=== PATIENT | female | born 1995 | race Caucasian/White ===

== ENCOUNTER 2024-07-19 23:06 | Observation (INO) ==
[2024-07-19] MEDS: LORazepam 1 MG/1 ML SYR ED Inj Use ONE ×2 (23:25→23:35)
[2024-07-19] MEDS: HALOPERIDOL LACTATE 5 MG/ML 1 ML VIAL ONE (23:25)
[2024-07-19] MEDS ORDERED: HALOPERIDOL DECANOATE INJ 50 MG/ML VIAL IM ONE (23:49)
[2024-07-20 00:07] LABS: Hemoglobin 13.1 g/dl (12.0-16.0); Mean Corpuscular Hemoglobin 25.1 pg (25.0-34.0); Mean Corpuscular Volume 78.5 fL (80.0-100.0); Mean Platelet Volume 10.4 fL (9.4-12.4); Platelet Count 447 K/uL (130-400); RDW Coefficient of Variation 13.5 % (11.5-14.5); RDW Standard Deviation 37.6 fL (36.4-46.3); Red Blood Count 5.22 M/uL (4.20-5.40); White Blood Count 13.53 K/ul (4.8-10.8)
[2024-07-20 00:21] LABS: Albumin Globulin Ratio 1.1 (0.9-2); Albumin Level 4.6 gm/dl (3.4-5.0); BUN Creatinine Ratio 10.7 (10-20); Bilirubin,Total 0.3 mg/dl (0.2-1.0); Calcium 9.3 mg/dl (8.6-10.3); Creatinine Clr Calc Pharmacy 140.4 ml/min; Globulin 4.2 gm/dl (2.5-4.0); Magnesium 1.7 mg/dl (1.7-2.4); Potassium 3.8 mmol/L (3.5-5.1); Total Protein 8.8 gm/dl (6.0-8.3)
[2024-07-20 00:34] LABS: ALC (manual) 6.09 K/uL (1.2-3.4); ANC (manual) 6.63 K/uL (1.4-6.5); Basophils # (manual) 0.27 K/uL (0-0.2); Basophils % (manual) 2 %; Eosinophils # (manual) 0.27 K/uL (0-0.50); Eosinophils % (manual) 2 %; Large Granular Lymph # (manua 2.16 K/uL; Large Granular Lymph % (manual) 16 %; Lymphocytes # (manual) 3.92 K/uL (1.2-3.4); Lymphocytes % (manual) 29 %; Monocytes # (manual) 0.27 K/uL (0.11-0.59); Monocytes % (manual) 2 %; Neutrophils # (manual) 6.63 K/uL (1.40-6.50); Neutrophils % (manual) 49 %; Ovalocytes 1+; Polychromasia 1+
[2024-07-20 00:39] LABS: Appearance Urine Clear (Clear); Bacteria Urine Automated None Seen (None Seen); Bilirubin Urine Negative (Negative); Blood Urine Negative (Negative); Color Urine Yellow; Epithelial Cell Urine Auto 0-2 /hpf (0-2); Glucose Urine UA Negative (Negative); Ketones Urine Negative (Negative); Leukocyte Esterase Urine Negative (Negative); Nitrite Urine Negative (Negative); Protein Urine 1+ (Negative); RBC Urine Automated 0-2 /hpf (0-2); Urobilinogen Urine Negative (Negative); WBC Urine Automated 0-5 /hpf (0-5)
--- NOTE | 2024-07-20 00:46 | Emergency Department Note ---
Impression & Plan Intentional overdose of insulin, Alcohol intoxication Admit to the [facility] ED Provider Note NAME: BRANDY HERNANDEZ AGE: 29 SEX: Female INFORMANT: Patient ED PROVIDER(S): Marcella Cedeño DO CHIEF COMPLAINT: insulin overdose; alcohol intoxication PLAN: Disposition: Admit to the [facility] on a 1-to-1 MEDICAL DECISION MAKING: This is a 29-year-old female patient with a history of diabetes and alcohol abuse who presents to the emergency department after an intentional insulin overdose. Patient was stopped by state police as a DUI when she intentionally overdosed herself on insulin with her insulin pump. She presented to the emergency department in an acute combative state. She was under the influence of alcohol with a normal blood sugar at the time of presentation. She required both chemical and physical restraint and quickly became hypoglycemic. Patient received IV dextrose bolus and was placed on IV dextrose drip. She was monitored closely and admitted medically. She made multiple suicidal threats while here in the emergency department and will require psychiatric evaluation when she is medically cleared. Laboratory studies revealed a negative urine drug screen, negative and negative urinalysis. White blood cell count was 13.5. H&H were stable. Sodium was elevated at 147. Alcohol level was 281. Aspirin and Tylenol levels were negative. Anion gap was elevated at 15. Patient's blood sugar upon presentation was 124 but dropped as low as 33. Patient required IM Haldol and IM Ativan for chemical sedation. She was observed on the cardiac cath rn in the prone position. I was at the bedside during both physical and chemical restraint. Vital signs remained stable. Blood sugars were checked every 30 minutes. She was bolused with IV D10 and then placed on D10/W drip at 250 mL/h Blood sugars were [phone] Care/management discussed with: ED psychiatric clinical case manager; [place] [employer] police; [facility]ist Triage Nursing notes: reviewed and agree with them. Vital Signs: reviewed and remarkable for tachycardia and hypertension Additional History obtained from: Police and the patient's Chronic Medical/Social Conditions affecting care: Insulin-dependent diabetes and alcohol dependence Differential Diagnosis: Mood disorder, thought disorder, alcohol intoxication, drug abuse, suicide attempt Diagnostics, independently interpreted by me: ECG: sinus tachycardia at a rate of [address] segment elevation or signs of ischemia. There is no ectopy. Cardiac Monitoring: Sinus tachycardia at 119 HPI: 29 year old Female arrives for evaluation of suicide attempt. Patient was pulled over by state police as a DUI. During their processing, the patient admitted that she had overdosed herself with her insulin pump. She was brought to the emergency department for evaluation and became combative with police. PAST MEDICAL HISTORY: See Below, PAST SURGICAL HISTORY: See Below, SOCIAL HISTORY: See Below, HOME MEDICATIONS: See list ALLERGIES: See list VITALS: See Below PHYSICAL EXAMINATION: HEENT: Head - normocephalic and atraumatic. Pupils are equal, round, and reactive to light. Extraocular eye muscles are intact, and sclera are anicteric. Nose - moist nasal mucosa without discharge. Mouth - moist buccal mucosa. Oropharynx is nonerythematous and there is no tonsillar exudate or edema noted. Neck: Supple; no cervical lymphadenopathy Heart: Tachycardic rate and rhythm. There is a normal S1 and S2 with no murmurs, clicks, or gallops appreciated. Lungs: Clear to auscultation bilaterally with no wheezes, rales, or rhonchi. Abdomen: Soft, completely nontender, nondistended, with good bowel sounds. There are no palpable pulsatile masses or hepatosplenomegaly. There is no guarding, rigidity, or rebound noted. Extremities: No evidence of cyanosis, clubbing, or edema. There are easily palpable peripheral pulses. Skin: warm and diaphoretic with good turgor and no rashes. Multiple tattoos Psych: Patient was extremely agitated. She was yelling expletives at nursing staff and myself. She was threatening to punch security staff and nursing staff and me. Emergency department treatment: manager monitoring, IM Haldol, IM Ativan, IM Ativan, IV D10, IV D10W drip Emergency department course: The patient was evaluated in room A-10. A complete history and physical was performed. The patient was physically restrained with 4 point locked restraints. She was chemically restrained with 10 mg of IM Haldol and 2 mg of IM Ativan. She was placed in the prone position on the cardiac cath rn and monitor closely. Laboratory studies were drawn as above. Blood sugars were obtained every 30 minutes. The patient's second blood sugar dropped from 124-33. She was bolused with IV D10. Her blood sugar rebounded nicely to 149. A subsequent blood sugar dropped to 60. She was placed on IV D10 drip at 250 mL/h. I discussed case with the [facility] Hospitalist and they will evaluate for further inpatient medical care. The patient will remain on a one-to-one status because of her suicide attempt I have personally spent greater than 70 minutes of critical care time in the direct management of this patient. This includes bedside care, interpretation of diagnostic studies, and testing, discussion with consultants, patient, and family members, and other required patient management activities. This 70 minutes is in excess of all separately billable procedures. Past Med/Surg History Problem List (Updated 07/20/24 @ 19:13 by Marcella Cedeño DO) Alcohol intoxication (Acute) Alcohol use disorder, severe, dependence Diabetes Intentional overdose of insulin (Acute) Social History Smoking Status: Unknown if ever smoked Hx Alcohol Use: Yes (pt refuses to answer) Preferred Language: [place] [employer] Required: No Beliefs That Will Affect Care: None Current Living Situation: Spouse Current Living Situation Comment: lives with Feels Safe at Home: Declines to Answer Assistive Devices: None Allergies Allergies Allergy/AdvReac Type Severity Reaction Status Date / Time albuterol Allergy Agitated Verified 07/19/24 23:41 Home Meds Home Medications Medication Instructions Recorded Confirmed escitalopram oxalate 10 mg tablet 10 mg PO DAILY 07/20/24 07/20/24 ferrous sulfate 325 mg (65 mg 325 mg PO DAILY 07/20/24 07/20/24 iron) tablet (FeroSul) hydroxyzine pamoate 25 mg capsule 25 mg PO QID PRN Unknown 07/20/24 07/20/24 insulin lispro 100 unit/mL See Rx Instructions .Route .COMPLEX 07/20/24 07/20/24 subcutaneous pen levothyroxine 88 mcg tablet 88 mcg PO DAILY 07/20/24 07/20/24 lisinopril 10 mg tablet 10 mg PO DAILY 07/20/24 07/20/24 propranolol 20 mg tablet 20 mg PO BID PRN BLOOD PRESSURE 07/20/24 07/20/24 AND GT 150/90 AND /OR ANXIETY trazodone 50 mg tablet 50 - 100 mg PO HS PRN Unknown 07/20/24 07/20/24 Results & Data (ED) Vital Signs Vital Signs - 24 hr 07/19/24 23:20 07/19/24 23:25 07/19/24 23:30 Temperature 37.0 C Temperature Source Rectal Pulse Rate 125 H 125 H 160 H Pulse Rate [Apical] Pulse Rate from SpO2 Sensor Pulse Rhythm Regular Regular Pulse Rhythm [Apical] Pulse Strength Normal Pulse Strength [Apical] Respiratory Rate 22 18 23 Respiratory Effort / Characteristics Non-Labored Spontaneous Respiratory Depth Normal Respiratory Pattern Regular Blood Pressure 121/59 L Blood Pressure [Left Arm] Blood Pressure Mean 79 Blood Pressure Mean [Left Arm] Blood Pressure Position Lying Blood Pressure Position [Left Arm] Pulse Oximetry 92 92 92 Oxygen Delivery Method Room Air Room Air Room Air Oxygen Flow Rate Sepsis Recent Fever Within 48 Hours No Sepsis New/Unexplained Change in Mental Status N/A Sepsis Action Taken by Nursing No Action Required 07/19/24 23:42 07/19/24 23:48 07/19/24 23:48 Temperature Temperature Source Pulse Rate 132 H Pulse Rate [Apical] Pulse Rate from SpO2 Sensor Pulse Rhythm Pulse Rhythm [Apical] Pulse Strength Pulse Strength [Apical] Respiratory Rate 22 Respiratory Effort / Characteristics Respiratory Depth Respiratory Pattern Blood Pressure 121/59 L 121/59 L Blood Pressure [Left Arm] Blood Pressure Mean 108 108 Blood Pressure Mean [Left Arm] Blood Pressure Position Blood Pressure Position [Left Arm] Pulse Oximetry 91 Oxygen Delivery Method Room Air Oxygen Flow Rate Sepsis Recent Fever Within 48 Hours Sepsis New/Unexplained Change in Mental Status Sepsis Action Taken by Nursing 07/19/24 23:48 07/19/24 23:50 07/19/24 23:51 Temperature Temperature Source Pulse Rate 125 H 126 H Pulse Rate [Apical] Pulse Rate from SpO2 Sensor 126 H Pulse Rhythm Pulse Rhythm [Apical] Pulse Strength Pulse Strength [Apical] Respiratory Rate 21 Respiratory Effort / Characteristics Respiratory Depth Respiratory Pattern Blood Pressure 121/59 L Blood Pressure [Left Arm] Blood Pressure Mean 108 Blood Pressure Mean [Left Arm] Blood Pressure Position Blood Pressure Position [Left Arm] Pulse Oximetry 90 Oxygen Delivery Method Oxygen Flow Rate Sepsis Recent Fever Within 48 Hours Sepsis New/Unexplained Change in Mental Status Sepsis Action Taken by Nursing 07/19/24 23:59 07/20/24 00:00 07/20/24 00:33 Temperature Temperature Source Pulse Rate 119 H Pulse Rate [Apical] 85 Pulse Rate from SpO2 Sensor 119 H Pulse Rhythm Pulse Rhythm [Apical] Regular Pulse Strength Pulse Strength [Apical] Normal Respiratory Rate 17 17 Respiratory Effort / Characteristics Non-Labored Spontaneous Non-Labored Respiratory Depth Normal Normal Respiratory Pattern Regular Regular Blood Pressure Blood Pressure [Left Arm] 95/62 L Blood Pressure Mean Blood Pressure Mean [Left Arm] 73 Blood Pressure Position Blood Pressure Position [Left Arm] Lying Pulse Oximetry 92 92 Oxygen Delivery Method Nasal Cannula Oxygen Flow Rate 2 Sepsis Recent Fever Within 48 Hours Sepsis New/Unexplained Change in Mental Status Sepsis Action Taken by Nursing Laboratory Data 07/19/24 23:43 07/20/24 09:14 Lab Results 07/19/24 07/19/24 07/20/24 Range/Units 23:12 23:43 00:14 WBC 13.53 H (4.8-10.8) K/ul RBC 5.22 (4.20-5.40) M/uL Hgb 13.1 (12.0-16.0) g/dl Hct 41.0 (37.0-47.0) % MCV 78.5 L (80.0-100.0) fL MCH 25.1 (25.0-34.0) pg MCHC 32.0 (32.0-36.0) g/dL RDW Std Deviation 37.6 (36.4-46.3) fL RDW Coeff of Lillie 13.5 (11.5-14.5) % Plt Count 447 H (130-400) K/uL MPV 10.4 (9.4-12.4) fL Neutrophils % (Manual) 49 % Lymphocytes % (Manual) 29 % Monocytes % (Manual) 2 % Eosinophils % (Manual) 2 % Basophils % (Manual) 2 % Neutrophils # (Manual) 6.63 H (1.40-6.50) K/uL Total Absolute Neuts 6.63 H (1.4-6.5) K/uL Lymphocytes # (Manual) 3.92 H (1.2-3.4) K/uL Total Abs Lymphocytes 6.09 H (1.2-3.4) K/uL Monocytes # (Manual) 0.27 (0.11-0.59) K/uL Eosinophils # (Manual) 0.27 (0-0.50) K/uL Basophils # (Manual) 0.27 H (0-0.2) K/uL Large Granular Lymphs 16 % # Lrg Granular Lymphs 2.16 K/uL Blood Smear Review Cancelled Polychromasia 1+ Ovalocytes 1+ Sodium 147 H (136-145) mmol/L Potassium 3.8 (3.5-5.1) mmol/L Chloride 112 H (98-107) mmol/L Carbon Dioxide 20 L (21-32) mmol/L Anion Gap 15 H (3-11) BUN 8 (6-23) mg/dl Creatinine 0.75 (0.6-1.2) mg/dl Est Cr Clr Drug Dosing 140.4 ml/min eGFR 110.45 BUN/Creatinine Ratio 10.7 (10-20) Glucose 62 L (70-99(Fasting)) mg/dl POC Glucose 124 H 36 L* (70-99) mg/dl Estimat Average Glucose 166 mg/dl Hemoglobin A1c 7.4 H (4.5-5.6) % Calcium 9.3 (8.6-10.3) mg/dl Magnesium 1.7 (1.7-2.4) mg/dl Total Bilirubin 0.3 (0.2-1.0) mg/dl AST 23 (13-39) U/L ALT 17 (7-52) U/L Alkaline Phosphatase 74 (34-104) U/L Total Protein 8.8 H (6.0-8.3) gm/dl Albumin 4.6 (3.4-5.0) gm/dl Globulin 4.2 H (2.5-4.0) gm/dl Albumin/Globulin Ratio 1.1 (0.9-2) Urine Color Urine Appearance (Clear) Urine pH (4.5-7.5) Ur Specific [place] (1.000-1.030) Urine Protein (Negative) Urine Glucose (UA) (Negative) Urine Ketones (Negative) Urine Blood (Negative) Urine Nitrite (Negative) Urine Bilirubin (Negative) Urine Urobilinogen (Negative) Ur Leukocyte Esterase (Negative) Urine WBC (Auto) (0-5) /hpf Urine RBC (Auto) (0-2) /hpf U Hyaline Cast (Auto) (0-2) /lpf U Epithel Cells (Auto) (0-2) /hpf Urine Bacteria (Auto) (None Seen) Salicylates < 3.0 L (3.0-30) mg/dl Urine Opiates Screen (Neg) Ur Methadone, Qual (Neg) Urine Fentanyl Screen (Neg) Acetaminophen < 3 L (10-30) ug/ml Urine Barbiturates (Neg) Ur Phencyclidine (PCP) (Neg) U Amphetamin/Meth Scrn (Neg) MDMA (Ecstasy) Screen (Neg) U Benzodiazepines Scrn (Neg) Ur Cocaine Metabolite (Neg) U Marijuana (THC) Screen (Neg) Ethyl Alcohol mg/dL 281.1 H (<10.0) mg/dl 07/20/24 07/20/24 07/20/24 Range/Units 00:15 00:24 00:33 WBC (4.8-10.8) K/ul RBC (4.20-5.40) M/uL Hgb (12.0-16.0) g/dl Hct (37.0-47.0) % MCV (80.0-100.0) fL MCH (25.0-34.0) pg MCHC (32.0-36.0) g/dL RDW Std Deviation (36.4-46.3) fL RDW Coeff of Lillie (11.5-14.5) % Plt Count (130-400) K/uL MPV (9.4-12.4) fL Neutrophils % (Manual) % Lymphocytes % (Manual) % Monocytes % (Manual) % Eosinophils % (Manual) % Basophils % (Manual) % Neutrophils # (Manual) (1.40-6.50) K/uL Total Absolute Neuts (1.4-6.5) K/uL Lymphocytes # (Manual) (1.2-3.4) K/uL Total Abs Lymphocytes (1.2-3.4) K/uL Monocytes # (Manual) (0.11-0.59) K/uL Eosinophils # (Manual) (0-0.50) K/uL Basophils # (Manual) (0-0.2) K/uL Large Granular Lymphs % # Lrg Granular Lymphs K/uL Blood Smear Review Polychromasia Ovalocytes Sodium (136-145) mmol/L Potassium (3.5-5.1) mmol/L Chloride (98-107) mmol/L Carbon Dioxide (21-32) mmol/L Anion Gap (3-11) BUN (6-23) mg/dl Creatinine (0.6-1.2) mg/dl Est Cr Clr Drug Dosing ml/min eGFR BUN/Creatinine Ratio (10-20) Glucose (70-99(Fasting)) mg/dl POC Glucose 32 L* 149 H (70-99) mg/dl Estimat Average Glucose mg/dl Hemoglobin A1c (4.5-5.6) % Calcium (8.6-10.3) mg/dl Magnesium (1.7-2.4) mg/dl Total Bilirubin (0.2-1.0) mg/dl AST (13-39) U/L ALT (7-52) U/L Alkaline Phosphatase (34-104) U/L Total Protein (6.0-8.3) gm/dl Albumin (3.4-5.0) gm/dl Globulin (2.5-4.0) gm/dl Albumin/Globulin Ratio (0.9-2) Urine Color Yellow Urine Appearance Clear (Clear) Urine pH 6.0 (4.5-7.5) Ur Specific [place] 1.010 (1.000-1.030) Urine Protein 1+ H (Negative) Urine Glucose (UA) Negative (Negative) Urine Ketones Negative (Negative) Urine Blood Negative (Negative) Urine Nitrite Negative (Negative) Urine Bilirubin Negative (Negative) Urine Urobilinogen Negative (Negative) Ur Leukocyte Esterase Negative (Negative) Urine WBC (Auto) 0-5 (0-5) /hpf Urine RBC (Auto) 0-2 (0-2) /hpf U Hyaline Cast (Auto) 3-5 H (0-2) /lpf U Epithel Cells (Auto) 0-2 (0-2) /hpf Urine Bacteria (Auto) None Seen (None Seen) Salicylates (3.0-30) mg/dl Urine Opiates Screen Neg (Neg) Ur Methadone, Qual Neg (Neg) Urine Fentanyl Screen Neg (Neg) Acetaminophen (10-30) ug/ml Urine Barbiturates Neg (Neg) Ur Phencyclidine (PCP) Neg (Neg) U Amphetamin/Meth Scrn Neg (Neg) MDMA (Ecstasy) Screen Neg (Neg) U Benzodiazepines Scrn Neg (Neg) Ur Cocaine Metabolite Neg (Neg) U Marijuana (THC) Screen Neg (Neg) Ethyl Alcohol mg/dL (<10.0) mg/dl 07/20/24 Range/Units 01:02 WBC (4.8-10.8) K/ul RBC (4.20-5.40) M/uL Hgb (12.0-16.0) g/dl Hct (37.0-47.0) % MCV (80.0-100.0) fL MCH (25.0-34.0) pg MCHC (32.0-36.0) g/dL RDW Std Deviation (36.4-46.3) fL RDW Coeff of Lillie (11.5-14.5) % Plt Count (130-400) K/uL MPV (9.4-12.4) fL Neutrophils % (Manual) % Lymphocytes % (Manual) % Monocytes % (Manual) % Eosinophils % (Manual) % Basophils % (Manual) % Neutrophils # (Manual) (1.40-6.50) K/uL Total Absolute Neuts (1.4-6.5) K/uL Lymphocytes # (Manual) (1.2-3.4) K/uL Total Abs Lymphocytes (1.2-3.4) K/uL Monocytes # (Manual) (0.11-0.59) K/uL Eosinophils # (Manual) (0-0.50) K/uL Basophils # (Manual) (0-0.2) K/uL Large Granular Lymphs % # Lrg Granular Lymphs K/uL Blood Smear Review Polychromasia Ovalocytes Sodium (136-145) mmol/L Potassium (3.5-5.1) mmol/L Chloride (98-107) mmol/L Carbon Dioxide (21-32) mmol/L Anion Gap (3-11) BUN (6-23) mg/dl Creatinine (0.6-1.2) mg/dl Est Cr Clr Drug Dosing ml/min eGFR BUN/Creatinine Ratio (10-20) Glucose (70-99(Fasting)) mg/dl POC Glucose 71 (70-99) mg/dl Estimat Average Glucose mg/dl Hemoglobin A1c (4.5-5.6) % Calcium (8.6-10.3) mg/dl Magnesium (1.7-2.4) mg/dl Total Bilirubin (0.2-1.0) mg/dl AST (13-39) U/L ALT (7-52) U/L Alkaline Phosphatase (34-104) U/L Total Protein (6.0-8.3) gm/dl Albumin (3.4-5.0) gm/dl Globulin (2.5-4.0) gm/dl Albumin/Globulin Ratio (0.9-2) Urine Color Urine Appearance (Clear) Urine pH (4.5-7.5) Ur Specific [place] (1.000-1.030) Urine Protein (Negative) Urine Glucose (UA) (Negative) Urine Ketones (Negative) Urine Blood (Negative) Urine Nitrite (Negative) Urine Bilirubin (Negative) Urine Urobilinogen (Negative) Ur Leukocyte Esterase (Negative) Urine WBC (Auto) (0-5) /hpf Urine RBC (Auto) (0-2) /hpf U Hyaline Cast (Auto) (0-2) /lpf U Epithel Cells (Auto) (0-2) /hpf Urine Bacteria (Auto) (None Seen) Salicylates (3.0-30) mg/dl Urine Opiates Screen (Neg) Ur Methadone, Qual (Neg) Urine Fentanyl Screen (Neg) Acetaminophen (10-30) ug/ml Urine Barbiturates (Neg) Ur Phencyclidine (PCP) (Neg) U Amphetamin/Meth Scrn (Neg) MDMA (Ecstasy) Screen (Neg) U Benzodiazepines Scrn (Neg) Ur Cocaine Metabolite (Neg) U Marijuana (THC) Screen (Neg) Ethyl Alcohol mg/dL (<10.0) mg/dl Administered Medications Enoxaparin Sodium (Enoxaparin Inj 40 Mg/0.4 Ml Syr) 40 mg SQ Q24H COUNTS INCLUDE 234 BEDS AT THE [facility] Stop: 08/19/24 08:59 Last Admin: 07/20/24 09:10 Dose: Not Given Documented By: JAYLIN Folic Acid 1 mg/ Syringe 10 mls @ 5 mls/min IV QAM COUNTS INCLUDE 234 BEDS AT THE [facility] Stop: 08/19/24 08:59 Last Admin: 07/20/24 11:30 Dose: Not Given Documented By: JAYLIN Thiamine HCl 200 mg/ Sodium (Chloride) 52 mls @ 210 mls/hr IV BID COUNTS INCLUDE 234 BEDS AT THE [facility] Stop: 08/19/24 08:59 Last Admin: 07/20/24 11:30 Dose: Not Given Documented By: JAYLIN Insulin Aspart (Insulin Aspart Per Unit Charge) 0 units SC ACHS COUNTS INCLUDE 234 BEDS AT THE [facility] Stop: 08/19/24 07:29 Last Admin: 07/20/24 16:10 Dose: Not Given Documented By: Admin: 07/20/24 11:30 Dose: Not Given Documented By: Admin: 07/20/24 08:27 Dose: Not Given Documented By: JAYLIN Discontinued Medications Dextrose (Dextrose 10% 1,000 Ml Bag) Confirm Administered Dose 1,000 ml IV .STK- MED ONE Stop: 07/20/24 01:19 Last Admin: 07/20/24 01:19 Dose: Not Given Documented By: SRINIVAS Dextrose (Dextrose 50% 50 Ml Syringe) 50 ml IV NOW ONE Stop: 07/20/24 01:43 Last Admin: 07/20/24 01:50 Dose: 50 ml Documented By: SRINIVAS Haloperidol Lactate (Haloperidol Lactate 5 Mg/Ml 1 Ml Vial) Confirm Administered Dose 10 mg .ROUTE .STK-MED ONE Stop: 07/19/24 23:24 Last Admin: 07/19/24 23:25 Dose: 10 mg Documented By: DANIELLE Haloperidol Lactate (Haloperidol Lactate 5 Mg/Ml 1 Ml Vial) 2 mg IM ONE ONE Stop: 07/19/24 23:46 Last Admin: 07/20/24 00:48 Dose: Not Given Documented By: SRINIVAS Haloperidol Lactate (Haloperidol Lactate 5 Mg/Ml 1 Ml Vial) 10 mg IM NOW STA Stop: 07/20/24 00:32 Last Admin: 07/20/24 00:48 Dose: Not Given Documented By: SRINIVAS Dextrose (D10w) 500 mls @ 250 mls/hr IV .Q2H ONE Stop: 07/20/24 03:14 Last Infusion: 07/20/24 03:37 Dose: Infused Documented By: Admin: 07/20/24 01:26 Dose: 250 mls/hr Documented By: SRINIVAS Lorazepam (Lorazepam 1 Mg/1 Ml Syr Ed Inj Use) Confirm Administered Dose 2 mg .ROUTE .STK-MED ONE Stop: 07/19/24 23:23 Last Admin: 07/19/24 23:25 Dose: 2 mg Documented By: DANIELLE Lorazepam (Lorazepam 1 Mg/1 Ml Syr Ed Inj Use) Confirm Administered Dose 1 mg .ROUTE .STK-MED ONE Stop: 07/19/24 23:34 Last Admin: 07/19/24 23:35 Dose: 1 mg Documented By: DANIELLE Lorazepam (Lorazepam 1 Mg/1 Ml Syr Ed Inj Use) 2 mg IM ONE STA Stop: 07/20/24 00:33 Last Admin: 07/20/24 00:49 Dose: Not Given Documented By: SRINIVAS Lorazepam (Lorazepam 1 Mg/1 Ml Syr Ed Inj Use) 1 mg IM ONE STA Stop: 07/20/24 00:34 Last Admin: 07/20/24 00:49 Dose: Not Given Documented By: SRINIVAS Discharge Plan Visit Data Chief Complaint: Overdose (Intentional) Stated Complaint: [facility] - O/D ED Provider: Marcella Cedeño Discharge Problem: Intentional overdose of insulin, Alcohol intoxication Patient Disposition: Admitted As Inpatient Discharge Instructions Interventions: ED Discharge Assessment Last Done: 07/20/24 03:16
[2024-07-20] MEDS: HALOPERIDOL LACTATE 5 MG/ML 1 ML VIAL IM ONE (00:48)
[2024-07-20] MEDS: HALOPERIDOL LACTATE 5 MG/ML 1 ML VIAL IM STA (00:48)
[2024-07-20] MEDS: LORazepam 1 MG/1 ML SYR ED Inj Use IM STA ×2 (00:49)
[2024-07-20 00:54] LABS: Acetaminophen < 3 ug/ml (10-30); Salicylate < 3.0 mg/dl (3.0-30)
[2024-07-20 01:01] LABS: Amphetamines+Metham, Urine Neg (Neg); Barbiturates, Urine Neg (Neg); Benzodiazepine, Urine Neg (Neg); Cocaine, Urine Neg (Neg); Fentanyl, Urine Neg (Neg); MDMA (Ecstacy), Urine Neg (Neg); Marijuana, Urine Neg (Neg); Methadone, Urine Neg (Neg); Opiate, Urine Neg (Neg); Phencyclidine, Urine Neg (Neg)
[2024-07-20] MEDS ORDERED: DEXTRAN 10% / D5W 500 ML IV ONE (01:11)
[2024-07-20] MEDS: DEXTROSE 10% 1,000 ML BAG IV ONE (01:19)
[2024-07-20] MEDS: DEXTROSE 10% 500 ML IV ONE (01:26)
--- NOTE | 2024-07-20 01:47 | History & Physical Report ---
Date of Service July 20, 2024 Assessment & Plan (1) Intentional overdose of insulin: (2) Diabetes: Plan 29-year-old female PMHx diabetes presenting to ED via [facility] for overdose on 60 units of insulin. Patient was arrested for DUI for alcohol, reportedly brought to long-term, and well at this location used her insulin pump and injected herself with 60 units of insulin. Upon initial evaluation in ED, glucose was 124, CBC w/ leukocytosis, hypernatremia (147), AG 15, CO2 20, and UA negative for infection. UDS negative, salicylates < 3.0, acetaminophen < 3, EOTH 281.1. Given agitated behavior, patient has been appropriately sedated and has restraints in place at time of admission. #Overdose, intentional, insulin Intentional OD of insulin, 60U following arrest for DUI. Pt glucose initially 124. Received D10 250ml/hr + D50 50ml x 1. Insulin pump was confiscated and patient no longer with access to it. During evaluation at time of admission, no evidence of N/V, diaphoresis, or tremors. Slightly tachycardic; will monitor. - 302 completed, pt aware of; Psych consult, 1-on-1 - Glucose as follows: 124 > 36 > 149 > 71 > 62 > 146 > pending repeat q30m - Continue dextrose; D50 50mL prn for glucose < 100 -- will adjust IVF as appropriate - ? pain - acetaminophen prn; avoid narcotics at this time - Mg 1.7, K 3.8 -- BMP in 2 hr then q4hr; will add Mg + K supplementation as appropriate - In restraints mechanically and chemically at time of admission; If ongoing agitation: Benadryl 50mg IV first THEN haloperidol 5mg IM - Suicide precautions #DM, insulin dependent H/o DMT2, noted per home medications on "Lantus Solostar". Home meds appear to be Lispro 12U TID before meals, Lantus 35U HS - SSI with target BSG range 120-160mg/dL, CF 20, carb ratio 5 -- Will allow for SSI for now until can confirm with patient her actual insulin dosing - BSG ACHS once stabilized, continue current checks for now - Adjust regimen as needed - Pharm glycemic management consult placed #ETOH Intoxication/?Withdrawal Unsure of patient's baseline ETOH use but given situation in which brought pt to ED as well as Acamprosate being picked up from pharmacy 06/22/24, will assume ETOH abuse until able to confirm otherwise. ETOH at admission 281, no apparent additional other substances identified. - AWSS - Thiamine 100mg IV am + 1mg folate IV am - Inquire about ETOH use once pt able to converse appropriately #Mood/Sleep disturbances- Escitalopram 20mg, hydroxy 25mg QID prn (anxiety); Trazodone 50mg 1-2 tabs prn #HTN- Lisinopril 10mg #Hypothyroidism- Levothyroxine 88mcg #Anemia- H/H on admission 13.1/41.0; Ferrous sulfate 325mg DID NOT order home medications at time of admission as it could not be confirmed what the patient is actually taking. Dispo: Admit PCU, 302 placed VTE Prophylaxis: Lovenox This document was dictated utilizing [employer]. Please excuse any grammatical errors that may be secondary to use of this software. Admission and Anticipated Discharge Date Admission Date: 07/20/2024 History of Present Illness Chief Complaint: Overdose Primary Care Provider: NO PCP 29-year-old female PMHx diabetes presenting to ED via [facility] for overdose on 60 units of insulin. Patient was arrested for DUI for alcohol, reportedly brought to long-term, and well at this location used her insulin pump and injected herself with 60 units of insulin. Upon the time of arrival, patient was noted to be agitated and undressing herself while making inappropriate remarks. At time of PA-C visit, patient is appropriately sedated in ED. She is aware of provider's presence in the room and mumbles responses that are not able to be understood but says "yes" when asked if she is in pain. Patient is unable to explain anything further regarding this pain. Please see Dr. Stratton's attestation for adjustments/additions to treatment plan. Allergies Allergy/AdvReac Type Severity Reaction Status Date / Time albuterol Allergy Agitated Verified 07/19/24 23:41 Past Med/Surg History Problem List (Updated 07/20/24 @ 02:07 by Radha Vizcarra PA-C) Diabetes Intentional overdose of insulin Social History Smoking Status: Never smoker Preferred Language: [place] Verdean Feels Safe at Home: Yes Review of Systems Review of Systems: Unobtainable due to reduced consciousness Physical Exam Physical Exam: General: No acute distress, appropriately sedated Skin: Warm and dry Head: Normocephalic, atraumatic Eyes: Conjunctivae clear, sclera non-icteric ENT: External ear and ear canal without swelling; nose atraumatic Cardio: RRR, no M/G/R, S1 and S2 normal Resp:No respiratory distress, Lungs CTA in all lobes bilaterally Abdomen: Soft, symmetric MSK: No deformities; pulses palpable and equal; no edema. Neuro: Sedated/sleeping Psych: Sedated/sleeping. Results & Data Results & Data Vital Signs (Past 12 Hours) Vital Signs Temp Pulse Resp BP Pulse Ox O2 Del Method 07/20/24 00:00 119 H 17 92 07/19/24 23:51 126 H 21 90 07/19/24 23:50 125 H 07/19/24 23:48 121/59 L 07/19/24 23:48 121/59 L 07/19/24 23:48 121/59 L 07/19/24 23:42 132 H 22 91 Room Air 07/19/24 23:30 160 H 23 92 Room Air 07/19/24 23:25 125 H 18 92 Room Air 07/19/24 23:20 37.0 C 125 H 22 121/59 L 92 Room Air Laboratory Results 07/20/24 07/20/24 07/20/24 Unknown 01:37 01:35 WBC RBC Hgb Hct MCV MCH MCHC RDW Std Deviation RDW Coeff of Lillie Plt Count MPV Neutrophils % (Manual) Lymphocytes % (Manual) Monocytes % (Manual) Eosinophils % (Manual) Basophils % (Manual) Neutrophils # (Manual) Total Absolute Neuts Lymphocytes # (Manual) Total Abs Lymphocytes Monocytes # (Manual) Eosinophils # (Manual) Basophils # (Manual) Large Granular Lymphs # Lrg Granular Lymphs Polychromasia Ovalocytes Sodium Potassium Chloride Carbon Dioxide Anion Gap BUN Creatinine Est Cr Clr Drug Dosing eGFR BUN/Creatinine Ratio Glucose POC Glucose 62 L* 60 L* Calcium Magnesium Total Bilirubin AST ALT Alkaline Phosphatase Total Protein Albumin Globulin Albumin/Globulin Ratio Urine Color Urine Appearance Urine pH Ur Specific [place] Urine Protein Urine Glucose (UA) Urine Ketones Urine Blood Urine Nitrite Urine Bilirubin Urine Urobilinogen Ur Leukocyte Esterase Urine WBC (Auto) Urine RBC (Auto) U Hyaline Cast (Auto) U Epithel Cells (Auto) Urine Bacteria (Auto) POC Ur Test NEG Salicylates Urine Opiates Screen Ur Methadone, Qual Urine Fentanyl Screen Acetaminophen Urine Barbiturates Ur Phencyclidine (PCP) U Amphetamin/Meth Scrn MDMA (Ecstasy) Screen U Benzodiazepines Scrn Ur Cocaine Metabolite U Marijuana (THC) Screen Ethyl Alcohol mg/dL 07/20/24 07/20/24 07/20/24 01:02 00:33 00:24 WBC RBC Hgb Hct MCV MCH MCHC RDW Std Deviation RDW Coeff of Lillie Plt Count MPV Neutrophils % (Manual) Lymphocytes % (Manual) Monocytes % (Manual) Eosinophils % (Manual) Basophils % (Manual) Neutrophils # (Manual) Total Absolute Neuts Lymphocytes # (Manual) Total Abs Lymphocytes Monocytes # (Manual) Eosinophils # (Manual) Basophils # (Manual) Large Granular Lymphs # Lrg Granular Lymphs Polychromasia Ovalocytes Sodium Potassium Chloride Carbon Dioxide Anion Gap BUN Creatinine Est Cr Clr Drug Dosing eGFR BUN/Creatinine Ratio Glucose POC Glucose 71 149 H Calcium Magnesium Total Bilirubin AST ALT Alkaline Phosphatase Total Protein Albumin Globulin Albumin/Globulin Ratio Urine Color Yellow Urine Appearance Clear Urine pH 6.0 Ur Specific [place] 1.010 Urine Protein 1+ H Urine Glucose (UA) Negative Urine Ketones Negative Urine Blood Negative Urine Nitrite Negative Urine Bilirubin Negative Urine Urobilinogen Negative Ur Leukocyte Esterase Negative Urine WBC (Auto) 0-5 Urine RBC (Auto) 0-2 U Hyaline Cast (Auto) 3-5 H U Epithel Cells (Auto) 0-2 Urine Bacteria (Auto) None Seen POC Ur Test Salicylates Urine Opiates Screen Neg Ur Methadone, Qual Neg Urine Fentanyl Screen Neg Acetaminophen Urine Barbiturates Neg Ur Phencyclidine (PCP) Neg U Amphetamin/Meth Scrn Neg MDMA (Ecstasy) Screen Neg U Benzodiazepines Scrn Neg Ur Cocaine Metabolite Neg U Marijuana (THC) Screen Neg Ethyl Alcohol mg/dL 07/20/24 07/20/24 07/19/24 00:15 00:14 23:43 WBC 13.53 H RBC 5.22 Hgb 13.1 Hct 41.0 MCV 78.5 L MCH 25.1 MCHC 32.0 RDW Std Deviation 37.6 RDW Coeff of Lillie 13.5 Plt Count 447 H MPV 10.4 Neutrophils % (Manual) 49 Lymphocytes % (Manual) 29 Monocytes % (Manual) 2 Eosinophils % (Manual) 2 Basophils % (Manual) 2 Neutrophils # (Manual) 6.63 H Total Absolute Neuts 6.63 H Lymphocytes # (Manual) 3.92 H Total Abs Lymphocytes 6.09 H Monocytes # (Manual) 0.27 Eosinophils # (Manual) 0.27 Basophils # (Manual) 0.27 H Large Granular Lymphs 16 # Lrg Granular Lymphs 2.16 Polychromasia 1+ Ovalocytes 1+ Sodium 147 H Potassium 3.8 Chloride 112 H Carbon Dioxide 20 L Anion Gap 15 H BUN 8 Creatinine 0.75 Est Cr Clr Drug Dosing 140.4 eGFR 110.45 BUN/Creatinine Ratio 10.7 Glucose 62 L POC Glucose 32 L* 36 L* Calcium 9.3 Magnesium 1.7 Total Bilirubin 0.3 AST 23 ALT 17 Alkaline Phosphatase 74 Total Protein 8.8 H Albumin 4.6 Globulin 4.2 H Albumin/Globulin Ratio 1.1 Urine Color Urine Appearance Urine pH Ur Specific [place] Urine Protein Urine Glucose (UA) Urine Ketones Urine Blood Urine Nitrite Urine Bilirubin Urine Urobilinogen Ur Leukocyte Esterase Urine WBC (Auto) Urine RBC (Auto) U Hyaline Cast (Auto) U Epithel Cells (Auto) Urine Bacteria (Auto) POC Ur Test Salicylates < 3.0 L Urine Opiates Screen Ur Methadone, Qual Urine Fentanyl Screen Acetaminophen < 3 L Urine Barbiturates Ur Phencyclidine (PCP) U Amphetamin/Meth Scrn MDMA (Ecstasy) Screen U Benzodiazepines Scrn Ur Cocaine Metabolite U Marijuana (THC) Screen Ethyl Alcohol mg/dL 281.1 H 07/19/24 23:12 WBC RBC Hgb Hct MCV MCH MCHC RDW Std Deviation RDW Coeff of Lillie Plt Count MPV Neutrophils % (Manual) Lymphocytes % (Manual) Monocytes % (Manual) Eosinophils % (Manual) Basophils % (Manual) Neutrophils # (Manual) Total Absolute Neuts Lymphocytes # (Manual) Total Abs Lymphocytes Monocytes # (Manual) Eosinophils # (Manual) Basophils # (Manual) Large Granular Lymphs # Lrg Granular Lymphs Polychromasia Ovalocytes Sodium Potassium Chloride Carbon Dioxide Anion Gap BUN Creatinine Est Cr Clr Drug Dosing eGFR BUN/Creatinine Ratio Glucose POC Glucose 124 H Calcium Magnesium Total Bilirubin AST ALT Alkaline Phosphatase Total Protein Albumin Globulin Albumin/Globulin Ratio Urine Color Urine Appearance Urine pH Ur Specific [place] Urine Protein Urine Glucose (UA) Urine Ketones Urine Blood Urine Nitrite Urine Bilirubin Urine Urobilinogen Ur Leukocyte Esterase Urine WBC (Auto) Urine RBC (Auto) U Hyaline Cast (Auto) U Epithel Cells (Auto) Urine Bacteria (Auto) POC Ur Test Salicylates Urine Opiates Screen Ur Methadone, Qual Urine Fentanyl Screen Acetaminophen Urine Barbiturates Ur Phencyclidine (PCP) U Amphetamin/Meth Scrn MDMA (Ecstasy) Screen U Benzodiazepines Scrn Ur Cocaine Metabolite U Marijuana (THC) Screen Ethyl Alcohol mg/dL Medications Administered Lorazepam, multiple doses Haloperidol, multiple doses Dextrose, multiple doses ECG Additional Comments: Accelerated junctional rhythm, low voltage QRS 112 bpm, QRS 68, Qt/QTc 292/398, PRT */143/145 Code Status & VTE Plan Code Status Full VTE Prophylaxis Plan VTE Prophylaxis will be ordered: Yes Supervising Physician Co-Signing Physician Notes Attending addendum: I have physically seen this patient, have supervised the BRIA's activities, and agree with the H&P unless as otherwise noted. Assessment and Plan: The patient is a 29-year-old female brought to the emergency department via [facility]SP for intentional overdose with reportedly 60 units of insulin, after being arrested for DUI for alcohol. #Intentional insulin overdose- Her insulin pump has been removed by ED staff Glucose in the emergency department was as low as 32 Patient received D10 at 250 mL/h from the ED She received multiple dosages of 50 mL of D50 as well. Patient will be admitted to the telemetry unit for frequent Accu-Cheks, and correction as needed Will continue D10 at 250 mL/h at baseline Will have glucoses checked every 1/2 hour, and if Accu-Chek is less than 100 she will get 50 mL of D50 This process will be continued until 2 successively acceptable glucose in a row. She will then be checked hourly overnight with the same protocol BMP and magnesium rechecked every 2 to 4 hours, and/or as needed Will need to have pharmacy determine if they can verify the patient's baseline dosing as her final target. #Electrolyte disturbances- Magnesium 1.7, potassium 3.8, Expect that electrolytes will need to be aggressively replenished, with the multiple dosages of dextrose needed after having overdosed on 60 units of insulin per her pump #Alcohol intoxication/abuse- Alcohol level 281.1 on admission She will be placed on AWSS protocol Thiamine 100 mg I IV every morning Folate 1 mg IV every morning #Mood/sleep disturbances/intentional insulin overdose- One-to-one observation Consult psychiatry Patient did require several doses of Haldol IM, and lorazepam IM from the ED due to excessive combativeness. She was still very sedated at the time of this evaluation. Of note, patient is under 302 PG Care Time/CCT Total # of Minutes Spent Total Time Spent with Patient: Total time spent is greater than 50% in coordination of care (as documented) at patient's floor/unit and/or counseling patient: Coding Level of Care Code 95664 INT INP/OBS CARE 2/55MIN Diagnoses Intentional overdose of insulin T38.3X2A Diabetes E11.9
[2024-07-20] MEDS ORDERED: DEXTROSE 50% 50 ML SYRINGE IV PRN ×2 (01:48→03:15)
[2024-07-20] MEDS: DEXTROSE 50% 50 ML SYRINGE IV ONE (01:50)
[2024-07-20] MEDS ORDERED: PHARMACY GLYCEMIC MGMT CONSULT PRN (03:15)
[2024-07-20] MEDS ORDERED: ACETAMINOPHEN 325 MG TAB PO PRN (03:15)
[2024-07-20] MEDS ORDERED: diphenhydrAMINE 50 MG/ML VIAL IV PRN (03:15)
[2024-07-20] MEDS ORDERED: GLUCAGON FOR INJ 1 MG VIAL SQ PRN (03:15)
[2024-07-20] MEDS ORDERED: GLUCOSE 10 TAB/TUBE PO PRN (03:15)
[2024-07-20] MEDS ORDERED: GLUCOSE 40% GEL 15 GM TUBE PO PRN (03:15)
[2024-07-20] MEDS ORDERED: CARBOHYDRATES FOR HYPOGLYCEMIA PO PRN (03:15)
[2024-07-20] MEDS ORDERED: HALOPERIDOL LACTATE 5 MG/ML 1 ML VIAL IM PRN (03:20)
[2024-07-20 04:53] LABS: Calcium 8.7 mg/dl (8.6-10.3); Creatinine Clr Calc Pharmacy 118.3 ml/min; Potassium 4.2 mmol/L (3.5-5.1)
[2024-07-20 05:19] LABS: Magnesium 1.8 mg/dl (1.7-2.4)
[2024-07-20] MEDS: INSULIN ASPART PER UNIT CHARGE SC SCH (08:27)
[2024-07-20] MEDS ORDERED: THIAMINE HCL 100 MG in SYRINGE 9 ML IV SCH (09:00)
[2024-07-20] MEDS ORDERED: THIAMINE HCL 200 MG in SYRINGE 9 ML IV SCH (09:00)
[2024-07-20] MEDS: ENOXAPARIN INJ 40 MG/0.4 ML SYR SQ SCH (09:10)
[2024-07-20 09:50] LABS: BUN Creatinine Ratio 12.9 (10-20); Calcium 8.9 mg/dl (8.6-10.3); Creatinine Clr Calc Pharmacy 169.9 ml/min; Potassium 4.2 mmol/L (3.5-5.1)
[2024-07-20] MEDS: THIAMINE HCL 200 MG in SODIUM CHLORIDE 0.9% 50 ML IV SCH (10:21)
[2024-07-20] MEDS: FOLIC ACID 1 MG in SYRINGE 9.8 ML IV SCH (11:30)
--- NOTE | 2024-07-20 13:28 | Progress Note ---
Date of Service July 20, 2024 Assessment & Plan (1) Diabetes: (2) Intentional overdose of insulin: (3) Alcohol use disorder, severe, dependence: Plan Unable to complete 302 evaluation at this time due to pt's non-cooperation. Will return to attempt evaluation again later. Continue 1:1. Continue alcohol withdrawal monitoring and management per current protocol. Recommend IV/PO Thiamine 1000mg. Admission and Anticipated Discharge Date Admission Date: July 20, 2024 Subjective Psychiatry was consulted to evaluate this 29-year-old female PMHx diabetes and suspected alcohol use disorder who presented to ED via [facility] for overdose on 60 units of insulin. Patient was arrested for DUI for alcohol, reportedly brought to alf, and while at that location used her insulin pump and injected herself with 60 units of insulin. ED Psych CM note: "Ania Hwang from [facility] completed a 302 [address] Warrant on 07/19/24 @ 2306 which states, "On 07/19/24 Sharmin was at [facility] and advised she was diabetic. Sharmin showed her insulin pump to me and had no insulin on board. Approx 10 min later she stated 'You guys are dumb I just took an overdose amount of insulin.' She showed me the pump again and displayed 60 units insulin on board. While driving to the hospital she stated multiple times she wanted to jump or be pushed off a yuliet." Pt extremely uncooperative with staff, security, and [facility] upon arrival." Alcohol level was 281 at 2343hrs last night. In the ED, patient was noted to be agitated and undressing herself while making inappropriate remarks and was sedated. Psych consult attempted x 3 at 10.30am, 11.30am and 12.30pm. Pt declined consult on each occasion. She did admit to having recently been discharged from rehab. Nursing staff report that she has declined to engage with medical treatment team as well. No signs of withdrawal at this time. Results & Data Vital Signs (Past 12 Hours) Vital Signs Temp Pulse Pulse Resp BP BP Pulse Ox 07/20/24 08:32 92 H 07/20/24 07:30 36.8 C 84 16 146/92 H 98 07/20/24 07:12 89 16 94/58 L 94 07/20/24 06:33 90 16 99/66 L 94 07/20/24 06:24 97 H 15 114/76 98 01/14/25 06:03 99 H 14 97 07/20/24 06:00 111/71 07/20/24 06:00 111/71 07/20/24 05:57 93 H 14 98 07/20/24 05:51 93 H 15 96 07/20/24 05:45 111/76 07/20/24 05:45 111/76 07/20/24 05:45 111/76 07/20/24 05:45 111/76 07/20/24 05:39 91 H 15 98 07/20/24 05:30 117/77 07/20/24 05:30 117/77 07/20/24 05:27 95 H 16 96 07/20/24 05:21 94 H 15 99 07/20/24 05:16 100/64 07/20/24 05:03 99 H 16 99 07/20/24 05:00 98/71 L 07/20/24 05:00 98/71 L 07/20/24 05:00 98/71 L 07/20/24 05:00 97 H 16 99 07/20/24 04:48 98 H 16 99 07/20/24 04:46 108/82 07/20/24 04:46 108/82 07/20/24 04:46 108/82 07/20/24 04:46 108/82 07/20/24 04:42 100 H 16 99 07/20/24 04:25 111/78 07/20/24 04:24 103 H 17 119/65 96 07/20/24 04:18 94 H 19 100 07/20/24 04:15 119/66 07/20/24 04:15 119/66 07/20/24 04:15 91 H 15 100 07/20/24 04:00 89 16 100 07/20/24 04:00 100/67 07/20/24 04:00 100/67 07/20/24 03:48 91 H 16 100 07/20/24 03:45 113/69 07/20/24 03:45 113/69 07/20/24 03:42 86 19 100 07/20/24 03:30 100/65 07/20/24 03:30 100/65 07/20/24 03:30 94 H 17 100 07/20/24 03:24 93 H 16 100 07/20/24 03:00 101/63 07/20/24 03:00 100 07/20/24 02:45 95/62 L 07/20/24 02:39 93 H 29 H 100 07/20/24 02:33 93 H 32 H 100 07/20/24 02:30 108/54 L 07/20/24 02:30 108/54 L 07/20/24 02:30 108/54 L O2 Del Method 07/20/24 08:32 07/20/24 07:30 Room Air 07/20/24 07:12 Room Air 07/20/24 06:33 Room Air 07/20/24 06:24 Room Air 07/20/24 06:03 07/20/24 06:00 07/20/24 06:00 07/20/24 05:57 07/20/24 05:51 07/20/24 05:45 07/20/24 05:45 07/20/24 05:45 07/20/24 05:45 07/20/24 05:39 07/20/24 05:30 07/20/24 05:30 07/20/24 05:27 07/20/24 05:21 07/20/24 05:16 07/20/24 05:03 07/20/24 05:00 07/20/24 05:00 07/20/24 05:00 07/20/24 05:00 07/20/24 04:48 07/20/24 04:46 07/20/24 04:46 07/20/24 04:46 07/20/24 04:46 07/20/24 04:42 07/20/24 04:25 07/20/24 04:24 Room Air 07/20/24 04:18 07/20/24 04:15 07/20/24 04:15 07/20/24 04:15 07/20/24 04:00 07/20/24 04:00 07/20/24 04:00 07/20/24 03:48 07/20/24 03:45 07/20/24 03:45 07/20/24 03:42 07/20/24 03:30 07/20/24 03:30 07/20/24 03:30 07/20/24 03:24 07/20/24 03:00 07/20/24 03:00 07/20/24 02:45 07/20/24 02:39 07/20/24 02:33 07/20/24 02:30 07/20/24 02:30 07/20/24 02:30
[2024-07-20 13:47] LABS: Estimated Average Glucose 166 mg/dl; Hemoglobin A1C 7.4 % (4.5-5.6)
--- NOTE | 2024-07-20 14:11 | Pharmacy Report ---
Pharmacy Glycemic Short Note 2 - Date of Service July 20, 2024 - Glycemic Short BSG Results (Last 24 hours): 07/19/24 07/19/24 07/20/24 23:12 23:43 00:14 Glucose 62 L POC Glucose 124 H 36 L* 07/20/24 07/20/24 07/20/24 00:15 00:33 01:02 Glucose POC Glucose 32 L* 149 H 71 07/20/24 07/20/24 07/20/24 01:35 01:37 02:11 Glucose POC Glucose 60 L* 62 L* 146 H 07/20/24 07/20/24 07/20/24 02:46 03:33 04:26 Glucose 172 H POC Glucose 145 H 143 H 07/20/24 07/20/24 07/20/24 06:04 08:19 09:14 Glucose 125 H POC Glucose 150 H 127 H OUTPATIENT ANTIDIABETIC REGIMEN: * Lispro Medtronic Insulin Pump (settings below provided by certified ski patroller) * Basal: 1.5 units/hr x 24 hrs (36 units/day) * Carb Ratio is 1 unit : 6 g/CHO * Correction Factor is 1 unit : 26 mg/dL above 120 mg/dL * Goal Range: 80-120 mg/dL * Of note, patient does not use bolus calculator. Instead manually boluses ~3-25 units per meal * Total daily insulin dose ~70-80 units HbA1c: * 7.4% (07/19/24) ASSESSMENT: * 29 yo F admitted on 07/19/23 secondary to intention insulin overdose. Pharmacy has been consulted to assist with inpatient glycemic management. Patient is a Type 2 diabetic as an outpatient. Please refer to outpatient regimen and most recent HbA1c above. * Patient was arrested and while at [facility], bolused herself with 60 units of insulin via her pump. Pump has since been removed. Presented with hypoglycemia, BSG poornima was 32 mg/dL. Treated with 50 cc of D50W as well as 500 cc of D10W running at 250 mL/hr. BSG improved to a max of 150 mg/dL this AM. * Verified pump has been removed. No plans to resume pump at this time. Will utilize basal-bolus regimen while inpatient. Patient has been uncooperative per discussion with RN. Refusing insulin and accuchecks but still eating. This will make diabetes management very difficult. * Novolog is ordered with a loose goal range of 120-160 mg/dL and parameters based on weight/stress of 1-2. Will order basal scale at HS to provide a max of 20 units which is ~30% reduction in home dose. PLAN FOR INPATIENT GLYCEMIC CONTROL: * Hold outpatient insulin pump * Basal insulin * Lantus 0-20 units SC HS (see eMAR for more details) * Bolus insulin * NovoLog per scale ACHS or Q6hrs while NPO * Goal Range: Low 120 mg/dL - High 160 mg/dL * Correction Factor: 25 mg/dL/unit * Nutritional / Prandial insulin per carb ratio of 1 unit per 8 grams CHO consumed
[2024-07-20 15:43] VITALS: RESP 18
--- NOTE | 2024-07-20 19:43 | Hospitalist Progress Note ---
Date of Service July 20, 2024 Assessment & Plan (1) Intentional overdose of insulin: Plan: patient used her insulin pump to bolus herself with 60 units of insulin after she had been taken into custody for DUI this subsequently led the [facility] Police to bring her to [facility] she did have hypoglycemia early in the stay here - now resolved with stable BSGs since she is refusing to eat, refusing to take any insulin injections, refusing most BSG checks at this time a1c noted (7.4%) (2) Diabetes: Plan: T2DM, on pump a1c 7.4% as above (3) Alcohol intoxication: Plan: ETOH at admission 281 intoxication resolved no signs of etoh withdrawal at this time with stable vitals, etc. cont thiamine and folic acid supplements if she will take watch for withdrawal (4) Alcohol use disorder, severe, dependence: Plan: presumed heavy etoh use as patient filled script for Acamprosate pm 06/22/24 per documentation was in etoh rehab recently now with DUI by report Plan Mood/Sleep disturbances - home meds - Escitalopram 20mg, hydroxyzine 25mg QID prn, Trazodone 50mg 1-2 tabs prn Per psych they are revoking her 302 as it appears patient is refusing all aspects of care in order to avoid legal ramifications from her DUI Nursing staff contacted [facility] Police - there is not a warrant for her arrest, however [place] back with psych tomorrow but it does not appear she will need involuntary psych admission following her medical admission HTN - BPs acceptable at this time VTE Prophylaxis: Lovenox (if she will take) Admission and Anticipated Discharge Date Admission Date: July 20, 2024 Subjective tele overnight wnl patient lying in bed with eyes closed she would, however, answer questions albeit on limited basis she asked several times "have you called my to come pick me up?" she declined to have me perform a physical exam per staff she has been refusing BSG checks throughout the day per staff she has been refusing vital sign checks by report she declined to speak with psych multiple times has not been eating by report when I asked her orientation questions she refused to answer, stating "have you called my to come pick me up?" Review of Systems Review of Systems: denied pain any location Physical Exam Physical Exam: gen - lying in bed comfortably, NAD, awake, alert rest of exam - refused any form of physical exam refused any form of orientation questions Results & Data Results & Data Vital Signs (Past 12 Hours) Vital Signs Temp Pulse Pulse Resp BP Pulse Ox O2 Del Method 07/20/24 17:31 103 H 07/20/24 14:45 36.8 C 84 18 146/92 H 98 Room Air 07/20/24 08:32 92 H Laboratory Results Laboratory Results - last 24 hr 07/19/24 07/20/24 07/20/24 23:43 04:26 06:04 Blood Smear Review Cancelled Sodium 142 Potassium 4.2 Chloride 109 H Carbon Dioxide 26 Anion Gap 7 BUN 8 Creatinine 0.89 Est Cr Clr Drug Dosing 118.3 eGFR 89.95 BUN/Creatinine Ratio 9.0 L Glucose 172 H POC Glucose 150 H Estimat Average Glucose 166 Hemoglobin A1c 7.4 H Calcium 8.7 Magnesium 1.8 07/20/24 07/20/24 07/20/24 08:19 09:14 21:09 Blood Smear Review Sodium 142 Potassium 4.2 Chloride 108 H Carbon Dioxide 23 Anion Gap 11 BUN 8 Creatinine 0.62 Est Cr Clr Drug Dosing 169.9 eGFR 123.55 BUN/Creatinine Ratio 12.9 Glucose 125 H POC Glucose 127 H 148 H Estimat Average Glucose Hemoglobin A1c Calcium 8.9 Magnesium PG Care Time/CCT Total # of Minutes Spent Total Time Spent with Patient: Total time spent is greater than 50% in coordination of care (as documented) at patient's floor/unit and/or counseling patient: Coding Level of Care Code 32082 SUB INP/OBS CARE 2/35MIN Diagnoses Intentional overdose of insulin T38.3X2A Diabetes E11.9 Alcohol intoxication F10.929 Alcohol use disorder, severe, dependence F10.20
[2024-07-20] MEDS: LANTUS PER UNIT CHARGE SC SCH (21:14)
--- NOTE | 2024-07-20 22:58 | Electrocardiogram Report ---
Test Reason : Blood Pressure : */* mmHG Vent. Rate : 112 BPM Atrial Rate : * BPM P-R Int : * ms QRS Dur : 68 ms QT Int : 356 ms P-R-T Axes : * 143 145 degrees QTcB Int : 486 ms Sinus tachycardia Low voltage QRS Anteroseptal infarct Possible Lateral infarct Nonspecific T wave abnormality Possible Limb lead reversal Prolonged QT Abnormal ECG No previous ECGs available Confirmed by Sajan Herrera ([id number]) on 07/20/2024 10:58:44 PM Referred By: REFERRED SELF Confirmed By: Sajan Herrera
--- NOTE | 2024-07-21 09:07 | Pharmacy Report ---
Pharmacy Glycemic Short Note 2 - Date of Service July 21, 2024 - Glycemic Short BSG Results (Last 24 hours): 07/20/24 07/20/24 09:14 21:09 Glucose 125 H POC Glucose 148 H OUTPATIENT ANTIDIABETIC REGIMEN: * Lispro Medtronic Insulin Pump (settings below provided by certified fire investigator) * Basal: 1.5 units/hr x 24 hrs (36 units/day) * Carb Ratio is 1 unit : 6 g/CHO * Correction Factor is 1 unit : 26 mg/dL above 120 mg/dL * Goal Range: 80-120 mg/dL * Of note, patient does not use bolus calculator. Instead manually boluses ~3-25 units per meal * Total daily insulin dose ~70-80 units HbA1c: * 7.4% (07/19/24) ASSESSMENT: 07/21: * Farideh has refused all of her insulin and most of her BSG checks so far. Have AM BSG of 127 mg/dL and HS BSG of 148 mg/dL from yesterday. * Refused accucheck again this morning. RN does report patient eating at least lunch tray yesterday. * Given refusal of insulin and BSG checks, pharmacy will sign off at this time. Please seen plan below for recommendations. 07/20: * 29 yo F admitted on 07/19/23 secondary to intention insulin overdose. Pharmacy has been consulted to assist with inpatient glycemic management. Patient is a Type 2 diabetic as an outpatient. Please refer to outpatient regimen and most recent HbA1c above. * Patient was arrested and while at [facility], bolused herself with 60 units of in sulin via her pump. Pump has since been removed. Presented with hypoglycemia, BSG poornima was 32 mg/dL. Treated with 50 cc of D50W as well as 500 cc of D10W running at 250 mL/hr. BSG improved to a max of 150 mg/dL this AM. * Verified pump has been removed. No plans to resume pump at this time. Will utilize basal-bolus regimen while inpatient. Patient has been uncooperative per discussion with RN. Refusing insulin and accuchecks but still eating. This will make diabetes management very difficult. * Novolog is ordered with a loose goal range of 120-160 mg/dL and parameters based on weight/stress of 1-2. Will order basal scale at HS to provide a max of 20 units which is ~30% reduction in home dose. PLAN FOR GLYCEMIC CONTROL: * Continue to hold outpatient insulin pump until patient is ready for discharge * While inpatient, continue with the following insulin orders in case patient starts to cooperate: * Basal insulin - Lantus 0-15 units SC HS (see eMAR for more details) * Bolus insulin - Goal Range: Low 120 mg/dL - High 160 mg/dL - Correction Factor: 25 mg/dL/unit - Carb ratio of 1 unit per 8 grams CHO consumed * If approved to transition back to outpatient insulin pump, follow these recommendations: * Ensure patient has all supplies for insulin pump needs with her * Current SC basal dose is less than half of patients home regimen. Therefore, may resume insulin pump 8-12 hours after last dose of SC basal insulin. If no SC basal insulin has been administered, may resume insulin pump at any time. * Please discontinue all SC insulin orders prior to entering insulin pump orders. * Pharmacy is signing off at this time. Please feel free to reconsult pharmacy glycemic services should patient start to cooperate with inpatient insulin regimen. Thank you for this consult.
[2024-07-21 11:04] VITALS: BP 108/68; PULSE 82; TEMP 98.2; O2SAT 98
[2024-07-21] MEDS: NICOTINE 14 MG/24 HR PATCH TD SCH (11:29)
[2024-07-21] MEDS ORDERED: DEXTROSE 50% 50 ML SYRINGE IV PRN (11:36)
[2024-07-21] MEDS ORDERED: GLUCAGON FOR INJ 1 MG VIAL SQ PRN (11:36)
[2024-07-21] MEDS ORDERED: INSULIN ASPART 100 UNITS/ML VIAL SC PRN (11:36)
[2024-07-21] MEDS ORDERED: GLUCOSE 10 TAB/TUBE PO PRN (11:36)
[2024-07-21] MEDS ORDERED: CARBOHYDRATES FOR HYPOGLYCEMIA PO PRN (11:36)
[2024-07-21] MEDS ORDERED: GLUCOSE 40% GEL 15 GM TUBE PO PRN (11:36)
[2024-07-21] MEDS ORDERED: INSULIN, Rapid-Acting PUMP SC SCH (11:45)
[2024-07-21] MEDS: ESCITALOPRAM OXALATE 10 MG TAB PO SCH (13:02)
[2024-07-21] MEDS: LEVOTHYROXINE SODIUM 88 MCG TABLET PO SCH (13:02)
[2024-07-21] MEDS: PROPRANOLOL HCL 20 MG TAB PO SCH (13:02)
[2024-07-21] MEDS: hydrOXYzine HCl 25 MG TAB PO PRN (13:02)
[2024-07-21 13:08] LABS: BUN Creatinine Ratio 15.3 (10-20); Calcium 9.3 mg/dl (8.6-10.3); Creatinine Clr Calc Pharmacy 146.3 ml/min; Potassium 4.1 mmol/L (3.5-5.1)
[2024-07-21 13:23] LABS: Thyroid Stimulating Hormone 2.251 uIu/ml (0.300-4.500)
--- NOTE | 2024-07-21 14:15 | Discharge Summary ---
Discharge Summary Date of Service July 21, 2024 Principal Dx & Hospital Course #1 = Principal Diagnosis (1) Intentional overdose of insulin: patient used her insulin pump to bolus herself with 60 units of insulin after she had been taken into custody for DUI this subsequently led the [facility] Police to bring her to [facility] she did have hypoglycemia early in the stay here - now resolved with stable BSGs since she is refusing to eat, refusing to take any insulin injections, refusing most BSG checks at this time a1c noted (7.4%) (2) Diabetes: T2DM, on pump a1c 7.4% as above (3) Alcohol intoxication: ETOH at admission 281 intoxication resolved no signs of etoh withdrawal at this time with stable vitals, etc. cont thiamine and folic acid supplements if she will take watch for withdrawal (4) Alcohol use disorder, severe, dependence: presumed heavy etoh use as patient filled script for Acamprosate pm 06/22/24 per documentation was in etoh rehab recently now with DUI by report Plan Mood/Sleep disturbances - home meds - Escitalopram 20mg, hydroxyzine 25mg QID prn, Trazodone 50mg 1-2 tabs prn Per psych they are revoking her 302 as it appears patient is refusing all aspects of care in order to avoid legal ramifications from her DUI Nursing staff contacted [facility] Police - there is not a warrant for her arrest, however Will [place] back with psych tomorrow but it does not appear she will need involuntary psych admission following her medical admission HTN - BPs acceptable at this time VTE Prophylaxis: Lovenox (if she will take) Admission HPI Per Admitting Provider 29-year-old female PMHx diabetes presenting to ED via PSP for overdose on 60 units of insulin. Patient was arrested for DUI for alcohol, reportedly brought to residential, and well at this location used her insulin pump and injected herself with 60 units of insulin. Upon the time of arrival, patient was noted to be agitated and undressing herself while making inappropriate remarks. At time of PA-C visit, patient is appropriately sedated in ED. She is aware of provider's presence in the room and mumbles responses that are not able to be understood but says "yes" when asked if she is in pain. Patient is unable to explain anything further regarding this pain. Please see Dr. Stratton's attestation for adjustments/additions to treatment plan. Discharge Exam gen - lying in bed comfortably, NAD, awake, alert rest of exam - refused any form of physical exam refused any form of orientation questions Discharge Plan Discharge Items Patient Disposition: Home - Self-Care Reason For Visit: OVERDOSE, INSULIN Discharge Diagnosis: 1. intentional insulin overdose 2. type 2 diabetes on insulin pump 3. hypothyroidism 4. anxiety 5. mood disorder 6. alcohol dependence with recent intoxication Activity: Resume your previous activity Non-emergency contact: Primary Care Provider and Psychiatrist Call non-emergency contact if: you have any medication questions and your symptoms worsen Follow-up/Referrals: Lynne Owen, DO [Primary Care Provider] - (please schedule a follow-up with your family doctor and your counselor within the next several days upon return home ) Diet: Carb Consistent or DM2 Addtl Attending Provider Instructions: Ms Finney, You were hospitalized after having had an overdose of insulin. This led to low blood sugars for several hours. Your sugars ultimately normalized and your diabetes control has been very satisfactory over the last 24 hours. Blood work performed on 07/21/24 showed normal electrolytes, kidney function, TSH (thyroid level), and vitamin B12 level (371). You have resumed your humalog insulin pump at prior parameters before discharging home. During your stay you were seen several times by our psychiatry team. They have not recommended inpatient psychiatric treatment at this time. You mentioned the possibility of going back to alcohol rehab and this may be a great option for you. Please plan to see your counselor in your hometown THIS WEEK as well as your family doctor. We have not changed any of your usual medications. Please continue all prior medicines prescribed by your hometown providers. If at any point you feel suicidal (want to hurt yourself), homicidal (want to hurt someone else), have thoughts of dying, etc -- please seek medical attention right away. The National Suicide Hotline is 988. This is available 27/01 for emergency help. On your drive back home today please stop about every 45 minutes, take a short walk, stretch your legs, etc. This is to prevent DVT blood clots of your legs on your journey. Return to any hospital emergency room if - * you have thoughts of hurting your self or anyone else * you have chest pains or shortness of breath * any other concerns Safe travels home today, Dr Phillip Pending Studies at Discharge: No Stand-Alone Forms: My [facility], Smoking Cessation Medications and DC Order Prescriptions: New Insulin Rapid Acting Pump 1 ea SC UD Qty: 1 0RF Rx Instructions: continue your humalog insulin pump per prior parameters as set by your diabetes providers Continued trazodone 50 mg tablet 50 - 100 mg PO HS PRN (Reason: Unknown) levothyroxine 88 mcg tablet 88 mcg PO DAILY ferrous sulfate [FeroSul] 325 mg (65 mg iron) tablet 325 mg PO DAILY lisinopril 10 mg tablet 10 mg PO DAILY propranolol 20 mg tablet 20 mg PO BID PRN (Reason: BLOOD PRESSURE AND GT 150/90 AND /OR ANXIETY) hydroxyzine pamoate 25 mg capsule 25 mg PO QID PRN (Reason: Unknown) escitalopram oxalate 10 mg tablet 10 mg PO DAILY Discontinued insulin lispro 100 unit/mL insulin pen See Rx Instructions .ROUTE .COMPLEX Rx Instructions: 12 units before meals and medium dose correction scale after meals. Max 60 units daily Discharge Orders: Discharge Order (Routine); Ordered 07/21/24 Ordered By: Eric Emery/Other Patient Handouts: High Blood Sugar (Hyperglycemia), Hypoglycemia (Low Blood Sugar), Managing Type 2 Diabetes, Alcoholism Resources, Alcoholism: Getting Help Admission Data Admit Date/Time: 07/20/24 01:34 Attending Provider: Eric Phillip Admit Provider: Aidan Stratton Primary Care Provider: Lynne Owen Other Providers: Aidan Stratton; Maddie Herrera; Domingo Soto; Eli Reeves; Kait Luna; Jos Meza; Sera Jain; Ilia Antonio Hospital Stay Data Consultations 07/20/24 01:13 ED Decision to Admit Stat 07/20/24 03:15 Consult Psychiatry Routine Pending Results Patient Have Any Pending Studies at Discharge: No Discharge Instructions Given to Patient (Per Discharging Provider) Ms Finney, Carl were hospitalized after having had an overdose of insulin. This led to low blood sugars for several hours. Your sugars ultimately normalized and your diabetes control has been very satisfactory over the last 24 hours. Blood work performed on 07/21/24 showed normal electrolytes, kidney function, TSH (thyroid level), and vitamin B12 level (371). You have resumed your humalog insulin pump at prior parameters before discharging home. During your stay you were seen several times by our psychiatry team. They have not recommended inpatient psychiatric treatment at this time. You mentioned the possibility of going back to alcohol rehab and this may be a great option for you. Please plan to see your counselor in your hometown THIS WEEK as well as your family doctor. We have not changed any of your usual medications. Please continue all prior medicines prescribed by your hometown providers. If at any point you feel suicidal (want to hurt yourself), homicidal (want to hurt someone else), have thoughts of dying, etc -- please seek medical attention right away. The National Suicide Hotline is 988. This is available 27/01 for emergency help. On your drive back home today please stop about every 45 minutes, take a short walk, stretch your legs, etc. This is to prevent DVT blood clots of your legs on your journey. Return to any hospital emergency room if - * you have thoughts of hurting your self or anyone else * you have chest pains or shortness of breath * any other concerns Safe travels home today, Dr Phillip Coding Diagnoses Intentional overdose of insulin T38.3X2A Diabetes E11.9 Alcohol intoxication F10.929 Alcohol use disorder, severe, dependence F10.20
== END 2024-07-21 14:52 | disposition home or self-care (01) ==
LOC: SUATTDRO → ED 23:06 → EDINP 07-20 01:34 → SUATTDRO 07-20 01:34 → INTOOBSV 07-20 01:34 → 2S 07-20 03:16